=== PATIENT | female | born 1965 | race Caucasian/White ===

== ENCOUNTER 2016-10-31 23:22 | Inpatient (IN) | payer SELFPAY ==
--- NOTE | 2016-11-01 02:39 | PDOC ---
Attending Attestation - HPI HPI: 11/01/16 02:52 50 year old female with a PMHx of NIDDM who presents to the ED with generalized weakness, lightheadedness, polyarthritis, and rash. Patient reports sore throat , cough, and subjective fever for three weeks. She reports onset of weakness, lightheadedness, and left ankle and bilateral wrist pain for 4 days. She notes that the ankle pain lasted for about one day and radiated to the knees on both sides (left worse than right). She has difficulty walking, noting that she just doesn't have the strength. She has only taken NyQuil and DayQuil for symptoms. She denies alcohol, tobacco, or drug use. - Physicial Exam PE: 11/01/16 02:52 GENERAL: Well-appearing, well-nourished. No apparent distress. HEENT: Normocephalic, atraumatic. PERRL, EOM intact. Lesions in posterior pharynx. CARDIOVASCULAR: Regular rate and rhythm. 2-3 out of 6 systolic murmur. PULMONARY: Clear to auscultation bilaterally. ABDOMEN: Soft, non-distended, non-tender. EXTREMITIES: Normal ROM in all four extremities. No gross deformities. SKIN: Warm, dry. Maculopapular rash on trunk and extremities. NEUROLOGICAL: No focal neurological deficits. <Vanessa Savage - Last Filed: 11/01/16 03:16> - Resident Resident Name: Ibrahim,Mary - ED Attending Attestation I have performed the following: I have examined & evaluated the patient, The case was reviewed & discussed with the resident, I agree w/resident's findings & plan, Exceptions are as noted - HPI HPI: 11/01/16 19:41 patient complains sore throat generalized and rash for the last several weeks. patient states that just started two days ago. Pt states she also has soreness and swelling to her joints - Physicial Exam PE: 11/01/16 19:40 *Physical Exam General Appearance: Yes: Appropriately Dressed. No: Apparent Distress, Intoxicated HEENT: positive: EOMI, STEPHANIE, Normal ENT Inspection, Normal Voice, TMs Normal, Pharynx Normal. negative: Pale Conjunctivae, Photophobia, Scleral Icterus (R), Scleral Icterus (L) Neck: positive: Trachea midline, Normal Thyroid, Supple. negative: Tender, Rigid, Carotid bruit, Stridor, Lymphadenopathy (R), Lymphadenopathy (L), Thyromegaly Respiratory/Chest: positive: Lungs Clear, Normal Breath Sounds. negative: Chest Tender, Respiratory Distress, Accessory Muscle Use, Labored Respiration, RES, Crackles, Rales, Rhonchi, Stridor, Wheezing, Dullness Cardiovascular: positive: Regular Rhythm, Regular Rate, S1, S2. negative: Edema , JVD, Murmur, Bradycardia, Tachycardia Vascular Pulses: Dorsalis-Pedis (R): 2+, Doralis-Pedis (L): 2+ Gastrointestinal/Abdominal: positive: Normal Bowel Sounds, Flat, Soft. negative : Tender, Organomegaly, Pulsatile Mass, Increased Bowel Sounds, Decreased BS, Distended, Guarding, Rebound, Hernia, Hepatomegaly, Spleenomegaly Lymphatic: negative: Adenopathy, Tenderness Musculoskeletal: positive: Normal Inspection. edema to the hands and feet. negative: CVA Tenderness, Decreased Range of Motion Extremity: positive: Normal Capillary Refill, Normal Inspection, Normal Range of Motion, Pelvis Stable. negative: Tender, Pedal Edema, Swelling, Erythema Integumentary: positive: Normal Color, Dry, Warm. macular papular rash to trunk and extremities, negative: Cyanotic, Erythema, Jaundice Neurologic: positive: acupuncture physician II-XII NML intact, Fully Oriented, Alert, Normal Mood/ Affect, Motor Strength 5/5. negative: EOM Palsy, Facial Droop, Sensory Deficit - Medical Decision Making 11/01/16 19:43 Pt admitted to further evaluation <Zachary Campos - Last Filed: 11/01/16 19:43> Discharge Disposition <Vanessa Savage - Last Filed: 11/01/16 03:16> - Discharge Dispostion Last Admission D/C Date: 03/24/10 Admit: Yes <Zachary Campos - Last Filed: 11/01/16 19:43> - Diagnosis Post-streptococcal glomerulonephritis - Discharge Dispostion Condition at time of disposition: Guarded
[2016-11-01] MEDS ORDERED: SODIUM CHLORIDE 1,000 ML IV STA (02:48)
--- NOTE | 2016-11-01 02:57 | PDOC ---
History of Present Illness - General Chief Complaint: Pain, Acute Stated Complaint: DIFFICULTY WALKING, NUMBNESS Time Seen by Provider: 11/01/16 02:10 History Source: Patient Exam Limitations: No Limitations - History of Present Illness Initial Comments: This is a 50 yo female with h/o NIDDM (on Metformin) who presents c/o generalized weakness, lightheadedness, polyarthritis, and rash. Her illness actually started three weeks ago with sore throat, cough, and subjective fever which have persisted since the onset, but this Saturday she additionally had the onset of weakness, lightheadedness, and left ankle and bilateral wrist pain. She notes that the ankle pain lasted for about one day but then seemed to migrate to the knees on both sides (left worse than right). The joints are swollen (especially the wrists) and she fees unable to even grasp a cup of water to drink. She has difficulty walking, noting that she just doesn't have the strength. Past History - Past Medical History Allergies/Adverse Reactions: Allergies Allergy/AdvReac Type Severity Reaction Status Date / Time No Known Allergies Allergy Verified 11/01/16 02:49 Home Medications: Ambulatory Orders Metformin HCl 500 mg PO BID 11/01/16 Diabetes: Yes - Psycho/Social/Smoking Cessation Hx Suicidal Ideation: No Smoking History: Never smoked Have you smoked in the past 12 months: No Information on smoking cessation initiated: No Hx Alcohol Use: No Drug/Substance Use Hx: No Review of Systems - Review of Systems Able to Perform ROS?: Yes Is the patient limited Persian proficient: Yes Constitutional: Yes: Chills, Fever. No: Unexplained wgt Loss HEENTM: Yes: Throat Pain. No: Nose Congestion Respiratory: Yes: Cough, Shortness of Breath Cardiac (ROS): Yes: Chest Pain (mild left sided). No: Palpitations ABD/GI: Yes: Diarrhea (mild). No: Constipated, Nausea, Vomiting : No: Burning, Dysuria Musculoskeletal: No: Back Pain, Neck Pain Integumentary: Yes: Rash (mildly itchy on trunk and extremities). No: Bruising Neurological: Yes: Headache, Weakness (generalized), Dizziness (lightheadedness) . No: Numbness, Tingling Endocrine: No: Unexplained Weight Gain, Unexplained Weight Loss *Physical Exam - Vital Signs Last Vital Signs Temp Pulse Resp BP Pulse Ox 98.7 F 85 17 112/68 100 11/01/16 02:07 11/01/16 02:07 11/01/16 02:07 11/01/16 02:07 11/01/16 02:07 - Physical Exam General Appearance: Yes: Nourished, Appropriately Dressed, Mild Distress, Other (appropriate and conversive, pleasant, but appears a bit tired). No: Apparent Distress HEENT: positive: EOMI, Normal Voice, Hearing Grossly Normal, Other (posterior pharyngeal erythema with soft palate vesicular lesions). negative: Scleral Icterus (R), Scleral Icterus (L), Tonsillar Exudate, Nasal Congestion, Excessive drooling Neck: positive: Trachea midline, Supple. negative: Tender, Rigid Respiratory/Chest: positive: Lungs Clear, Normal Breath Sounds. negative: Respiratory Distress, Crackles, Rhonchi, Stridor, Wheezing Cardiovascular: positive: Regular Rhythm, Regular Rate. negative: Murmur Gastrointestinal/Abdominal: positive: Normal Bowel Sounds, Soft. negative: Tender, Organomegaly, Pulsatile Mass, Guarding Musculoskeletal: positive: Normal Inspection. negative: Decreased Range of Motion, Vertebral Tenderness Extremity: positive: Normal Capillary Refill, Normal Inspection, Normal Range of Motion. negative: Tender, Cyanosis Integumentary: positive: Normal Color, Dry, Warm. negative: Erythema, Rash, Bruising Neurologic: positive: [employer] one dealer II-XII NML intact, Fully Oriented, Alert, Normal Mood/ Affect, Normal Response, Motor Strength 5/5 ED Treatment Course - LABORATORY CBC & Chemistry Diagram: 11/01/16 03:00 11/01/16 03:00 Medical Decision Making - Medical Decision Making 50 yo female with NIDDM who p/w sore throat/fever x3 weeks, now with polyarthritis, gen. weakness, dizziness, rash. States moved from [place] years ago but was fully immunized. Exam notable for hand/finger edema, polyarticular painful ROM, truncal/ extremity maculopapular rash, 2/6 systolic murmur. DDX includes post-streptococcal glomerulonephritis, rheumatic fever, nephrotic syndrome, medication reaction. Ordered are CBC, CMP, UA with cx, ESR, CXR, EKG. ESR is 44, UA with 2+ protein, 2+ blood, 2+ leukocyte esterase with few squamous cells. EKG NSR without ID prolongation or low voltage. Empirically treating for UTI with 1g ceftriaxone IVPB. Does not meet Dolan criteria for rheumatic fever based on workup so far. Most likely this is post-Streptococcal glomerulonephritis. Pt is admitted for further workup and IV antibiotics. *DC/Admit/Observation/Transfer Diagnosis at time of Disposition: Post-streptococcal glomerulonephritis - Discharge Dispostion Condition at time of disposition: Guarded Admit: Yes - Attestations Physician Attestion: 11/01/16 07:23 I, Dr. Donna Ibrahim, attest that this document has been prepared under my direction and personally reviewed by me in its entirety. I further attest, that it accurately reflects all work, treatment, procedures and medical decision -making performed by me.
[2016-11-01 03:08] LABS: BASOPHIL 0.5 % (0-2.0); EOSINOPHIL 1.4 % (0-4.5); MCH 30.8 pg (25.7-33.7); MCHC 34.7 g/dl (32.0-36.0); MEAN CELL VOLUME 88.7 fl (80-96); MEAN PLT VOLUME 8.3 fl (7.5-11.1); NEUTROPHILS 68.2 % (42.8-82.8); PLATELET COUNT 247 K/MM3 (134-434); RDW 12.3 % (11.6-15.6); WHITE BLOOD COUNT 7.1 K/mm3 (4.0-10.0)
[2016-11-01 03:20] LABS: INR 1.04 (0.82-1.09); PROTHROMBIN TIME (PATIENT) 11.5 SEC (9.98-11.88)
[2016-11-01 03:32] LABS: ALK PHOS 118 U/L (45-117); ANION GAP 9 (8-16); BILIRUBIN,TOTAL 0.4 mg/dL (0.2-1.0); CALCIUM 8.6 mg/dL (8.5-10.1); CO2 27 mmol/L (21-32); CREATININE 0.6 mg/dL (0.55-1.02); GLUCOSE,RANDOM 171 mg/dL (74-106); SGOT/AST 22 U/L (15-37); SGPT/ALT 41 U/L (12-78); TOT PROT 7.4 g/dl (6.4-8.2)
[2016-11-01 03:33] LABS: TROPONIN I < 0.02 ng/ml (0.00-0.05)
[2016-11-01 03:35] LABS: URINE APPEARANCE CLEAR; URINE BILIRUBIN NEGATIVE (NEGATIVE); URINE BLOOD 2+ (NEGATIVE); URINE COLOR YELLOW; URINE GLUCOSE (UA) NEGATIVE (NEGATIVE); URINE KETONE 2+ (NEGATIVE); URINE NITRITE NEGATIVE (NEGATIVE); URINE UROBILINOGEN NEGATIVE mg/dL (0.2-1.0)
[2016-11-01 03:47] LABS: URINE LEUK ESTERASE 2+ (NEGATIVE); URINE PROTEIN 2+ (NEGATIVE)
[2016-11-01 04:04] LABS: URINE MUCUS RARE; URINE RBC 4 /hpf (0-3); URINE WBC 25 /hpf (3-5)
[2016-11-01 04:08] LABS: ERYTHROCYTE SEDIMENTATION RATE 44 mm/hr (0-30)
[2016-11-01] MEDS ORDERED: CEFTRIAXONE 1 GM in DEXTROSE 5%-WATER - 50 ML IVPB ONE (05:30)
[2016-11-01] MEDS ORDERED: CEFTRIAXONE 50 ML ONE (05:55)
[2016-11-01] MEDS ORDERED: ACETAMINOPHEN 325 MG TABLET (FP) PO PRN (06:14)
[2016-11-01] MEDS ORDERED: predniSONE 20 MG TABLET (UD) PO ONE (06:15)
--- NOTE | 2016-11-01 06:16 | HP ---
CHIEF COMPLAINT: joint pain HISTORY OF PRESENT ILLNESS: 50yo woman with PMH of NIDDM who presents with several days of generalized weakness and polyarthritis. 3 weeks ago she had a sore throat, cough and subjective fever. She reports that her son was also sick around that time, and was found to be positive for Strep throat. Patient states that she was feeling better, but several days ago started to have pain and swelling both knees. The following day her wrists were painful as well, and she started to have difficulty walking 2/2 to pain. She notes that she has had rash on her upper extremities that improved prior to arriving to the ED. Pt denies CP, pressure, or palpitations. No nausea, vomiting, diarrhea, or constipation. No dysuria or urinary frequency. Recent Travel: Denies PAST MEDICAL HISTORY: #NIDDM - controlled with diet and metformin #Heart murmur as child --> Around 10yo while in [facility] recalls 6mo of oral medication after discovery of heart murmur PAST SURGICAL HISTORY: unknown Social History: from [place] Smoking: never Alcohol: no Drugs: no Family History: non-contributory Allergies: NKDA HOME MEDICATIONS: Home Medications Medication Instructions Recorded Metformin HCl 500 mg PO BID 11/01/16 REVIEW OF SYSTEMS CONSTITUTIONAL: +generalized weakness Absent: fever, chills, diaphoresis, generalized weakness, malaise, loss of appetite, weight change HEENT: Absent: rhinorrhea, nasal congestion, throat pain, throat swelling, difficulty swallowing, mouth swelling, ear pain, eye pain, visual changes CARDIOVASCULAR: Absent: chest pain, syncope, palpitations, irregular heart rate, lightheadedness , peripheral edema RESPIRATORY: Absent: cough, shortness of breath, dyspnea with exertion, orthopnea, wheezing, stridor, hemoptysis GASTROINTESTINAL: Absent: abdominal pain, abdominal distension, nausea, vomiting, diarrhea, constipation, melena, hematochezia GENITOURINARY: Absent: dysuria, frequency, urgency, hesitancy, hematuria, flank pain, genital pain MUSCULOSKELETAL: +polyarthralgia, joint swelling Absent: myalgia back pain, neck pain SKIN:+rash on arms and trunk Absent: rash, itching, pallor HEMATOLOGIC/IMMUNOLOGIC: Absent: easy bleeding, easy bruising, lymphadenopathy, frequent infections ENDOCRINE: Absent: unexplained weight gain, unexplained weight loss, heat intolerance, cold intolerance NEUROLOGIC: Absent: headache, focal weakness or paresthesias, dizziness, unsteady gait, seizure, mental status changes, bladder or bowel incontinence PSYCHIATRIC: Absent: anxiety, depression, suicidal or homicidal ideation, hallucinations. PHYSICAL EXAMINATION Vital Signs - 24 hr 11/01/16 02:07 Temperature 98.7 F Pulse Rate 85 Respiratory 17 Rate Blood Pressure 112/68 O2 Sat by Pulse 100 Oximetry (%) GENERAL: Awake, alert, and fully oriented, in no acute distress. HEAD: Normal with no signs of trauma. EYES: PERRLA, EOMI, sclera anicteric, conjunctiva clear EARS, NOSE, THROAT: Oropharynx clear without exudates. Moist mucous membranes. NECK: supple, no cervical LAD LUNGS: CTAB, no wheezes, crackles, or rhonchi HEART: Regular rate and rhythm, normal S1 and S2, 2/6 systolic murmur ABDOMEN: Soft, NTND, normoactive bowel sounds, no guarding, no rebound, no masses. No hepatomegaly or splenomegaly. MUSCULOSKELETAL: painful ROM in knees and wrists bilaterally UPPER EXTREMITIES: moderately edematous wrists and forearms LOWER EXTREMITIES: 2+ pulses, warm, well-perfused. No LE edema. NEUROLOGICAL: Grossly intact, not formally tested. Normal speech. Gait not assessed. PSYCHIATRIC: Cooperative. Good eye contact. Appropriate mood and affect. SKIN: Warm, dry, normal turgor. Macular rash on extremities, sparing palms and soles. Laboratory Results - last 24 hr 11/01/16 11/01/16 11/01/16 03:00 03:00 03:00 WBC 7.1 RBC 3.96 Hgb 12.2 Hct 35.2 MCV 88.7 MCH 30.8 MCHC 34.7 RDW 12.3 Plt Count 247 MPV 8.3 Neutrophils % 68.2 Lymphocytes % 22.7 Monocytes % 7.2 Eosinophils % 1.4 Basophils % 0.5 ESR 44 H INR 1.04 Sodium 139 Potassium 3.7 Chloride 103 Carbon Dioxide 27 Anion Gap 9 BUN 15 Creatinine 0.6 Creat Clearance w eGFR > 60 Random Glucose 171 H Calcium 8.6 Total Bilirubin 0.4 AST 22 ALT 41 Alkaline Phosphatase 118 H Creatine Kinase Troponin I Total Protein 7.4 Albumin 4.0 Urine Color Urine Appearance Urine pH Urine Protein Urine Glucose (UA) Urine Ketones Urine Blood Urine Nitrite Urine Bilirubin Urine Urobilinogen Ur Leukocyte Esterase Urine RBC Urine WBC Ur Epithelial Cells Urine Mucus Troponin, BNP 11/01/16 03:00 Troponin I < 0.02 Urine Test Results Urine Color Yellow 11/01/16 03:01 Urine Appearance Clear 11/01/16 03:01 Urine pH 5.0 (5.0-8.0) 11/01/16 03:01 Urine Protein 2+ (NEGATIVE) H 11/01/16 03:01 Urine Glucose (UA) Negative (NEGATIVE) 11/01/16 03:01 Urine Ketones 2+ (NEGATIVE) H 11/01/16 03:01 Urine Blood 2+ (NEGATIVE) H 11/01/16 03:01 Urine Nitrite Negative (NEGATIVE) 11/01/16 03:01 Urine Bilirubin Negative (NEGATIVE) 11/01/16 03:01 Ur Leukocyte Esterase 2+ (NEGATIVE) H 11/01/16 03:01 Urine RBC 4 /hpf (0-3) 11/01/16 03:01 Urine WBC 25 /hpf (3-5) 11/01/16 03:01 Ur Epithelial Cells Few /hpf (FEW) 11/01/16 03:01 Urine Mucus Rare 11/01/16 03:01 ASSESSMENT/PLAN: 50yo old woman with PMH of NIDDM who presents with polyarthritis and macular rash on UE sparing palms s/p URI 3weeks ago, and admitted for rheumatic fever vs post-infectious arthritis rule-out. #polyarthritis -Rheumatology consulted -Started on prednisone 60mg PO daily -LON pending #NIDDM -Hold home Metformin -Pending Hgb A1c -BGM HS -ISS HS #F/E/N -NS 1L bolus -Electrolytes wnl -Diabetic diet #Prophylaxis -DVT ppx: low risk - encourage early ambulation -GI ppx not indicated #Dispo -Admit for observation -FULL code d/w with Dr. Hoff and medical team LEONEL MALIN MD PGY-1 Visit type - Emergency Visit Emergency Visit: Yes ED Registration Date: 11/01/16 Care time: The patient presented to the Emergency Department on the above date and was hospitalized for further evaluation of their emergent condition. - New Patient This patient is new to me today: Yes Date on this admission: 11/01/16 - Critical Care Critical Care patient: No
[2016-11-01] MEDS ORDERED: SODIUM CHLORIDE 1,000 ML IV SCH (06:30)
--- NOTE | 2016-11-01 07:38 | PN ---
Teaching Attending Note Name of Resident: Yi Sharma ATTENDING PHYSICIAN STATEMENT I saw and evaluated the patient. I reviewed the resident's note and discussed the case with the resident. I agree with the resident's findings and plan as documented. SUBJECTIVE: 50 y/o F c/o b/l joint swelling and pain after URI ( sore throat) 3 weeks prior. Patient also noted to have macular rash on extremities, sparing palm and sole. OBJECTIVE: Wrist and knee joints painful on movement, slightly swollen. Laboratory Results - last 24 hr 11/01/16 11/01/16 11/01/16 03:00 03:00 03:00 WBC 7.1 RBC 3.96 Hgb 12.2 Hct 35.2 MCV 88.7 MCH 30.8 MCHC 34.7 RDW 12.3 Plt Count 247 MPV 8.3 Neutrophils % 68.2 Lymphocytes % 22.7 Monocytes % 7.2 Eosinophils % 1.4 Basophils % 0.5 ESR 44 H INR 1.04 Sodium 139 Potassium 3.7 Chloride 103 Carbon Dioxide 27 Anion Gap 9 BUN 15 Creatinine 0.6 Creat Clearance w eGFR > 60 Random Glucose 171 H Lactic Acid Calcium 8.6 Total Bilirubin 0.4 AST 22 ALT 41 Alkaline Phosphatase 118 H Creatine Kinase Troponin I Total Protein 7.4 Albumin 4.0 Urine Color Urine Appearance Urine pH Urine Protein Urine Glucose (UA) Urine Ketones Urine Blood Urine Nitrite Urine Bilirubin Urine Urobilinogen Ur Leukocyte Esterase Urine RBC Urine WBC Ur Epithelial Cells Urine Mucus 11/01/16 11/01/16 11/01/16 03:00 03:01 05:21 WBC RBC Hgb Hct MCV MCH MCHC RDW Plt Count MPV Neutrophils % Lymphocytes % Monocytes % Eosinophils % Basophils % ESR INR Sodium Potassium Chloride Carbon Dioxide Anion Gap BUN Creatinine Creat Clearance w eGFR Random Glucose Lactic Acid 0.9 Calcium Total Bilirubin AST ALT Alkaline Phosphatase Creatine Kinase 58 Troponin I < 0.02 Total Protein Albumin Urine Color Yellow Urine Appearance Clear Urine pH 5.0 Urine Protein 2+ H Urine Glucose (UA) Negative Urine Ketones 2+ H Urine Blood 2+ H Urine Nitrite Negative Urine Bilirubin Negative Urine Urobilinogen Negative Ur Leukocyte Esterase 2+ H Urine RBC 4 Urine WBC 25 Ur Epithelial Cells Few Urine Mucus Rare ASSESSMENT AND PLAN: Strep test was negative however suspicious for s/p strep arthritis vs viral syndrome. Follow LON, IVF, tylenol prn and rheumatology consult. Prediabetic get HbgA1c.
[2016-11-01] MEDS ORDERED: metFORMIN HCL 500 MG TABLET (FP) PO SCH (10:00)
--- NOTE | 2016-11-01 11:52 | EKG ---
Test Reason : Blood Pressure : / mmHG Vent. Rate : 078 BPM Atrial Rate : 078 BPM P-R Int : 166 ms QRS Dur : 098 ms QT Int : 386 ms P-R-T Axes : 038 031 046 degrees QTc Int : 440 ms NORMAL SINUS RHYTHM NORMAL ECG NO PREVIOUS ECGS AVAILABLE Confirmed by MARVIN SANCHEZ MD ([id number]) on 11/01/2016 11:52:07 AM Referred By: Confirmed By:MARVIN SANCHEZ MD
--- NOTE | 2016-11-01 16:58 | CONSULT ---
Consult Consult Specialty:: infectious diseases Reason for Consultation:: sore throat - History of Present Illness Chief Complaint: weakness,christelle throat History of Present Illness: 50yo woman with PMH of NIDDM who came to the hospital because according to her she was not getting well several days of generalized weakness and polyarthritis. 3 weeks ago she had a sore throat, cough and subjective fever. She reports that her son was also sick around that time, and was found to be positive for Strep throat. patient states that she was doing well untill she noticed swelling and pain in the knee joint according to her both she also mentions that she had a rash on the upper ext which has resolved and also had pain in both wrists According to her the pain was simultaneous in the joints of both legs and then when it occurred it was in both wrists NO other symptoms denies chest pain or any other issues currently in the er patient has no issues and feels good there was a thought process that the patient might have had rheumatic type of picture - History Source History Provided By: Patient, Medical Record Limitations to Obtaining History: Language Barrier - Alcohol/Substance Use Hx Alcohol Use: No - Smoking History Smoking history: Never smoked Have you smoked in the past 12 months: No Home Medications - Allergies Allergies/Adverse Reactions: Allergies Allergy/AdvReac Type Severity Reaction Status Date / Time No Known Allergies Allergy Verified 11/01/16 02:49 - Home Medications Home Medications: Ambulatory Orders Metformin HCl 500 mg PO BID 11/01/16 Review of Systems - Review of Systems Constitutional: reports: Fever, Weakness, Other Eyes: reports: No Symptoms HENT: reports: Other (sore throat) Neck: reports: No Symptoms Cardiovascular: reports: No Symptoms Respiratory: reports: No Symptoms Gastrointestinal: reports: No Symptoms Genitourinary: reports: No Symptoms Musculoskeletal: reports: Joint Swelling, Other (joint pain) Integumentary: reports: Erythema Neurological: reports: No Symptoms Endocrine: reports: No Symptoms Hematology/Lymphatic: reports: No Symptoms Psychiatric: reports: No Symptoms Physical Exam Vital Signs: Vital Signs Temperature 98.2 F 11/01/16 06:43 Pulse Rate 82 11/01/16 06:43 Respiratory Rate 11/01/16 06:43 Blood Pressure 116/68 11/01/16 06:43 O2 Sat by Pulse Oximetry (%) 97 11/01/16 06:43 Constitutional: Yes: Well Nourished, No Distress, Calm Eyes: Yes: Conjunctiva Clear HENT: Yes: Atraumatic Neck: Yes: Supple, Trachea Midline Cardiovascular: Yes: Regular Rate and Rhythm Respiratory: Yes: Regular, CTA Bilaterally Gastrointestinal: Yes: Normal Bowel Sounds, Soft Musculoskeletal: Yes: WNL Extremities: Yes: WNL Integumentary: No: Rash Neurological: Yes: Alert, Oriented Psychiatric: Yes: Alert, Oriented Imaging - Results Chest X-ray: Report Reviewed, Image Reviewed Other: Report Reviewed (echo), Image Reviewed (echo) Assessment/Plan patient evaluated patient admited with a possibility of rheumatic fever at the moment patient has no symptoms and patient is doing well patient has got her throat culture done and her blood work ahs been send as well as immunological work up poss rheumatic fever dm plan i will start on unasyn will await for all cx report miles await for immunology report rest as per primary team
--- NOTE | 2016-11-01 17:40 | HOSP ---
Subjective - Review of Symptoms Subjective: Evaluated pt at bedside states pain in knees B/L improved but continues to have pain in her hands. states rash has disappeared since arriving in the ER, that it was on both arms and legs, described it as erythematous but not painful or pruritic. states her symptoms started about 3 weeks ago with productive cough of yellow sputum along with subjective fever, chills and sore throat. her 6yo son was symptomatic as well and took him to ER and was told he had strep throat and given abx and symptoms resolved. denies CP, palpitations, N/V/C?D, no chorea, no dysuria or urinary frequency Last Vital Signs Temp Pulse Resp BP Pulse Ox 98.2 F 82 17 116/68 97 11/01/16 06:43 11/01/16 06:43 11/01/16 06:43 11/01/16 06:43 11/01/16 06:43 General NAD HEENT no erythema on pharynx or exudate CV S1 S2 RRR no murmur/rub/gallop +chest wall tenderness Lungs CTA B/L no wheezing/rales/rhonchi Extremities joint tenderness over metacarpals B/L no tenderness of knees or ankles. no nodules skin no rashes or erythema Assessment & Plan 1. Arthritis- concern for Rheumatic fever. son was +strep per pt. unclear if rash was characteristic of erythema marginatum. also has +arthralgia and elevated ESR. normal MI interval. clinical improvement with steroids given. started on Unasyn by ID. echo pending to evaluate for cardiac involvement. will start naproxen 500mg BID. robitussin prn cough. rheum, cardio and ID consulted. informed her other family members should be tested for strep and treated if + regardless if symptomatic. daniel/RF pending. f/u Cx 2. DM- A1c 9.2. not controlled on oral agents. will cont insulin at this time. iss. levermir 3. Proteinuria- possible dehydration related. no renal injury. on IVF. will repeat Physical Examination Vital Signs: Vital Signs Temperature 98.2 F 11/01/16 06:43 Pulse Rate 82 11/01/16 06:43 Respiratory Rate 17 11/01/16 06:43 Blood Pressure 116/68 11/01/16 06:43 O2 Sat by Pulse Oximetry (%) 97 11/01/16 06:43
[2016-11-01 18:19] VITALS: BMI 30.9
[2016-11-01] MEDS: AMPICILLIN NA/SULBACTAM NA 3 GM in SODIUM CHLORIDE 100 ML IVPB SCH (18:27)
[2016-11-01] MEDS ORDERED: INSULIN SLIDING SCALE (NOVOLOG) 1 VIAL SQ SCH (22:00)
[2016-11-01] MEDS: NAPROXEN 500 MG TABLET (FP) PO SCH (22:13)
[2016-11-01] MEDS: INSULIN SLIDING SCALE (NOVOLOG) 1 VIAL SQ SCH (22:17)
[2016-11-01 22:50] LABS: HIV 1 & 2 AB NEGATIVE; HIV 1 AGp24 NEGATIVE
[2016-11-02] MEDS ORDERED: PT OWN MED DRAWER 7, Y5N ONE ×3 (01:31→22:08)
[2016-11-02] MEDS: AMPICILLIN NA/SULBACTAM NA 3 GM in SODIUM CHLORIDE 100 ML IVPB SCH ×3 (02:17→17:16)
[2016-11-02] MEDS: INSULIN SLIDING SCALE (NOVOLOG) 1 VIAL SQ SCH ×4 (06:28→22:29)
--- NOTE | 2016-11-02 09:33 | PN ---
Physical Exam: SUBJECTIVE: Patient seen and examined. Feeling better, pain and swelling in hands has improved. No other arthralgias. Rash has dissipated. OBJECTIVE: Vital Signs Period Temp Pulse Resp BP Sys/Serna Pulse Ox Last 24 Hr 97.7 F-98.4 F 62-82 18-18 110-120/7-83 96-99 GENERAL: The patient is awake, alert, and fully oriented, in no acute distress. EYES: PERRL, extraocular movements intact, sclera anicteric, conjunctiva clear. No ptosis. ENT: Ears normal, nares patent, oropharynx clear without exudates, moist mucous membranes. NECK: Trachea midline, full range of motion, supple. LUNGS: Breath sounds equal, clear to auscultation bilaterally, no wheezes, no crackles, no accessory muscle use. HEART: Regular rate and rhythm, S1, S2, soft systolic murmur, no rub or gallop. ABDOMEN: Soft, nontender, nondistended, normoactive bowel sounds, no guarding, no rebound, no hepatosplenomegaly, no masses. EXTREMITIES: 2+ pulses, warm, well-perfused. Fingers are edematous but patient is now able to grasp objects normally. NEUROLOGICAL: Cranial nerves II through XII grossly intact. Normal speech, normal gait. PSYCH: Normal mood, normal affect. SKIN: Warm, dry, normal turgor, no rashes or lesions noted Laboratory Results - last 24 hr 11/01/16 11/01/16 11/01/16 06:42 19:30 22:16 POC Glucometer 273 Hemoglobin A1c % 9.2 H HIV 1&2 Antibody Screen Negative HIV P24 Antigen Negative 11/02/16 06:26 POC Glucometer 185 Hemoglobin A1c % HIV 1&2 Antibody Screen HIV P24 Antigen Active Medications Generic Name Dose Route Start Last Admin Trade Name Freq PRN Reason Stop Dose Admin Acetaminophen 650 mg 11/01/16 06:14 Tylenol - PO Q4H PRN PAIN Ampicillin Sodium/Sulbactam 100 mls @ 200 mls/hr 11/01/16 18:00 11/02/16 02:17 Sodium 3 gm/ Sodium Chloride IVPB 200 mls/hr Q8H-IV SUNI Administration Insulin Aspart 1 vial 11/01/16 22:00 11/02/16 06:28 Novolog Vial Sliding Scale - SQ 2 units ACHS SUNI Administration Protocol Naproxen 500 mg 11/01/16 22:00 11/01/16 22:13 Naprosyn - PO 500 mg BID SUNI Administration Laboratory Last Values WBC 7.1 K/mm3 (4.0-10.0) 11/01/16 03:00 RBC 3.96 M/mm3 (3.60-5.2) 11/01/16 03:00 Hgb 12.2 GM/dL (10.7-15.3) 11/01/16 03:00 Hct 35.2 % (32.4-45.2) 11/01/16 03:00 MCV 88.7 fl (80-96) 11/01/16 03:00 MCH 30.8 pg (25.7-33.7) 11/01/16 03:00 MCHC 34.7 g/dl (32.0-36.0) 11/01/16 03:00 RDW 12.3 % (11.6-15.6) 11/01/16 03:00 Plt Count 247 K/MM3 (134-434) 11/01/16 03:00 MPV 8.3 fl (7.5-11.1) 11/01/16 03:00 Neutrophils % 68.2 % (42.8-82.8) 11/01/16 03:00 Lymphocytes % 22.7 % (8-40) 11/01/16 03:00 Monocytes % 7.2 % (3.8-10.2) 11/01/16 03:00 Eosinophils % 1.4 % (0-4.5) 11/01/16 03:00 Basophils % 0.5 % (0-2.0) 11/01/16 03:00 ESR 44 mm/hr (0-30) H 11/01/16 03:00 INR 1.04 (0.82-1.09) 11/01/16 03:00 Sodium 139 mmol/L (136-145) 11/01/16 03:00 Potassium 3.7 mmol/L (3.5-5.1) 11/01/16 03:00 Chloride 103 mmol/L (98-107) 11/01/16 03:00 Carbon Dioxide 27 mmol/L (21-32) 11/01/16 03:00 Anion Gap 9 (8-16) 11/01/16 03:00 BUN 15 mg/dL (7-18) 11/01/16 03:00 Creatinine 0.6 mg/dL (0.55-1.02) 11/01/16 03:00 Creat Clearance w eGFR > 60 (>60) 11/01/16 03:00 POC Glucometer 259 UNITS (()) 11/02/16 11:21 Random Glucose 171 mg/dL (74-106) H 11/01/16 03:00 Hemoglobin A1c % 9.2 % (4.8-6.0) H 11/01/16 06:42 Lactic Acid 0.9 mmol/L (0.4-2.0) 11/01/16 05:21 Calcium 8.6 mg/dL (8.5-10.1) 11/01/16 03:00 Total Bilirubin 0.4 mg/dL (0.2-1.0) 11/01/16 03:00 AST 22 U/L (15-37) 11/01/16 03:00 ALT 41 U/L (12-78) 11/01/16 03:00 Alkaline Phosphatase 118 U/L (45-117) H 11/01/16 03:00 Creatine Kinase 58 IU/L (26-192) 11/01/16 03:00 Troponin I < 0.02 ng/ml (0.00-0.05) 11/01/16 03:00 C-Reactive Protein 2.4 MG/DL (0.00-0.3) H 11/02/16 10:19 Total Protein 7.4 g/dl (6.4-8.2) 11/01/16 03:00 Albumin 4.0 g/dl (3.4-5.0) 11/01/16 03:00 Urine Color Yellow 11/01/16 03:01 Urine Appearance Clear 11/01/16 03:01 Urine pH 5.0 (5.0-8.0) 11/01/16 03:01 Ur Specific [place] 1.025 (1.005-1.025) 11/01/16 03:01 Urine Protein 2+ (NEGATIVE) H 11/01/16 03:01 Urine Glucose (UA) Negative (NEGATIVE) 11/01/16 03:01 Urine Ketones 2+ (NEGATIVE) H 11/01/16 03:01 Urine Blood 2+ (NEGATIVE) H 11/01/16 03:01 Urine Nitrite Negative (NEGATIVE) 11/01/16 03:01 Urine Bilirubin Negative (NEGATIVE) 11/01/16 03:01 Urine Urobilinogen Negative mg/dL (0.2-1.0) 11/01/16 03:01 Ur Leukocyte Esterase 2+ (NEGATIVE) H 11/01/16 03:01 Urine RBC 4 /hpf (0-3) 11/01/16 03:01 Urine WBC 25 /hpf (3-5) 11/01/16 03:01 Ur Epithelial Cells Few /hpf (FEW) 11/01/16 03:01 Urine Mucus Rare 11/01/16 03:01 HIV 1&2 Antibody Screen Negative 11/01/16 19:30 HIV P24 Antigen Negative 11/01/16 19:30 ASSESSMENT/PLAN: 50 year old female with rash, arthralgia, and subjective fever following exposure to GAS. 1. Rash/arthralgia/fever -Per Dolan criteria: on major (arthritis) and two minor (fever, elevated acute phase reactants) does meet criteria for rheumatic fever diagnosis -Poststreptococcal reactive arthritis is also a consideration -No echocardiographic evidence of mitral or aortic regurgitation -QTc within normal limits on EKG -Throat culture with pending organism -Continue Naproxen, Unasyn -ID following -Cardiology evaluation pending -Rheumatology is unavailable for consultation 2. NIDDM -Holding Metformin -GhbA1C elevated at 9.2% -Continue Levemir -ISS -FSACHS -Diabetic diet 3. Polyarthritis -Rheumatology consulted -Improving on prednisone 60mg PO daily -LON pending 4. ?UTI -Asymptomatic -On Unasyn -Culture contaminated, will repeat 5. F/E/N -PO intake adequate -Diabetic diet 6. Ppx -Moderate risk -Lovenox -Ambulation DISPO: Requires inpatient services. Consideration of dc pending ID recommendations. Visit type - Emergency Visit Emergency Visit: Yes ED Registration Date: 11/01/16 Care time: The patient presented to the Emergency Department on the above date and was hospitalized for further evaluation of their emergent condition. - New Patient This patient is new to me today: Yes Date on this admission: 11/03/16 - Critical Care Critical Care patient: No - Discharge Referral Referred to [facility] P.C[facility] No
--- NOTE | 2016-11-02 09:59 | CON.CARD ---
Cardiology Consult (text) - Consultation Consultation Note: cc: weakness, joint pains, sore throat hpi: 50 f hx dm, here with weakness, sore throat, joint pain, fever, cough, rash. Been going on for few weeks. No cps, sob, palps, loc, pnd, orthopnea, le edema. Getting abx for strep. Cardio consulted for possible rheumatic fever. Pt feeling much better today after abx. pmh: per hpi psh: nc social: no tob fam: no premature cad/scd ros: per hpi; no nvd, nasal congestion, taylor, vision changes, gib, dysuria, hematuria meds: Home Medications Medication Instructions Recorded Metformin HCl 500 mg PO BID 11/01/16 pe: Vital Signs Period Temp Pulse Resp BP Sys/Serna Pulse Ox Last 24 Hr 97.7 F-98.4 F 62-82 18-18 110-120/7-83 96-99 nad no jvd rrr s1s2 no mrg cta bl nl eff aaox3 no le e/c/c abd nt nd pos bs no jaundice diaphoresis +dp/pt no carotid bruits Laboratory Last Values WBC 7.1 K/mm3 (4.0-10.0) 11/01/16 03:00 RBC 3.96 M/mm3 (3.60-5.2) 11/01/16 03:00 Hgb 12.2 GM/dL (10.7-15.3) 11/01/16 03:00 Hct 35.2 % (32.4-45.2) 11/01/16 03:00 MCV 88.7 fl (80-96) 11/01/16 03:00 MCH 30.8 pg (25.7-33.7) 11/01/16 03:00 MCHC 34.7 g/dl (32.0-36.0) 11/01/16 03:00 RDW 12.3 % (11.6-15.6) 11/01/16 03:00 Plt Count 247 K/MM3 (134-434) 11/01/16 03:00 MPV 8.3 fl (7.5-11.1) 11/01/16 03:00 Neutrophils % 68.2 % (42.8-82.8) 11/01/16 03:00 Lymphocytes % 22.7 % (8-40) 11/01/16 03:00 Monocytes % 7.2 % (3.8-10.2) 11/01/16 03:00 Eosinophils % 1.4 % (0-4.5) 11/01/16 03:00 Basophils % 0.5 % (0-2.0) 11/01/16 03:00 ESR 44 mm/hr (0-30) H 11/01/16 03:00 INR 1.04 (0.82-1.09) 11/01/16 03:00 Sodium 139 mmol/L (136-145) 11/01/16 03:00 Potassium 3.7 mmol/L (3.5-5.1) 11/01/16 03:00 Chloride 103 mmol/L (98-107) 11/01/16 03:00 Carbon Dioxide 27 mmol/L (21-32) 11/01/16 03:00 Anion Gap 9 (8-16) 11/01/16 03:00 BUN 15 mg/dL (7-18) 11/01/16 03:00 Creatinine 0.6 mg/dL (0.55-1.02) 11/01/16 03:00 Creat Clearance w eGFR > 60 (>60) 11/01/16 03:00 POC Glucometer 185 UNITS (()) 11/02/16 06:26 Random Glucose 171 mg/dL (74-106) H 11/01/16 03:00 Hemoglobin A1c % 9.2 % (4.8-6.0) H 11/01/16 06:42 Lactic Acid 0.9 mmol/L (0.4-2.0) 11/01/16 05:21 Calcium 8.6 mg/dL (8.5-10.1) 11/01/16 03:00 Total Bilirubin 0.4 mg/dL (0.2-1.0) 11/01/16 03:00 AST 22 U/L (15-37) 11/01/16 03:00 ALT 41 U/L (12-78) 11/01/16 03:00 Alkaline Phosphatase 118 U/L (45-117) H 11/01/16 03:00 Creatine Kinase 58 IU/L (26-192) 11/01/16 03:00 Troponin I < 0.02 ng/ml (0.00-0.05) 11/01/16 03:00 Total Protein 7.4 g/dl (6.4-8.2) 11/01/16 03:00 Albumin 4.0 g/dl (3.4-5.0) 11/01/16 03:00 Urine Color Yellow 11/01/16 03:01 Urine Appearance Clear 11/01/16 03:01 Urine pH 5.0 (5.0-8.0) 11/01/16 03:01 Ur Specific [place] 1.025 (1.005-1.025) 11/01/16 03:01 Urine Protein 2+ (NEGATIVE) H 11/01/16 03:01 Urine Glucose (UA) Negative (NEGATIVE) 11/01/16 03:01 Urine Ketones 2+ (NEGATIVE) H 11/01/16 03:01 Urine Blood 2+ (NEGATIVE) H 11/01/16 03:01 Urine Nitrite Negative (NEGATIVE) 11/01/16 03:01 Urine Bilirubin Negative (NEGATIVE) 11/01/16 03:01 Urine Urobilinogen Negative mg/dL (0.2-1.0) 11/01/16 03:01 Ur Leukocyte Esterase 2+ (NEGATIVE) H 11/01/16 03:01 Urine RBC 4 /hpf (0-3) 11/01/16 03:01 Urine WBC 25 /hpf (3-5) 11/01/16 03:01 Ur Epithelial Cells Few /hpf (FEW) 11/01/16 03:01 Urine Mucus Rare 11/01/16 03:01 HIV 1&2 Antibody Screen Negative 11/01/16 19:30 HIV P24 Antigen Negative 11/01/16 19:30 ecg 11/01/16: sr, nl intervals, no ischemic changes cxr: clear lungs echo 10/2016: nl lv/rv, no sig valve path, nl rvsp a/p: possible rheumatic fever: -pt feeling better today -no cardiac sxs, no signs chf -echo and ecg unremarkable -no indication of cardiac involvement at this time -cont abx per ID
[2016-11-02] MEDS: NAPROXEN 500 MG TABLET (FP) PO SCH ×2 (10:12→22:29)
[2016-11-02] MEDS: ENOXAPARIN NA (PORCINE) 40 MG/0.4 ML DISP.SYRIN SQ SCH (13:41)
--- NOTE | 2016-11-02 14:54 | PN ---
Progress Note, Physician History of Present Illness: patient feels better no new issues - Current Medication List Current Medications: Active Medications Acetaminophen (Tylenol -) 650 mg PO Q4H PRN PRN Reason: PAIN Enoxaparin Sodium (Lovenox -) 40 mg SQ DAILY [facility] Last Admin: 11/02/16 13:41 Dose: 40 mg Ampicillin Sodium/Sulbactam (Sodium 3 gm/ Sodium Chloride) 100 mls @ 200 mls/ hr IVPB Q8H-IV [facility] Last Admin: 11/02/16 10:12 Dose: 200 mls/hr Insulin Aspart (Novolog Vial Sliding Scale -) 1 vial SQ ACHS SUNI PRN Reason: Protocol Last Admin: 11/02/16 12:04 Dose: 6 units Naproxen (Naprosyn -) 500 mg PO BID [facility] Last Admin: 11/02/16 10:12 Dose: 500 mg - Objective Vital Signs: Vital Signs Temperature 97.8 F 11/02/16 10:00 Pulse Rate 70 11/02/16 10:00 Respiratory Rate 18 11/02/16 10:00 Blood Pressure 104/69 11/02/16 10:00 O2 Sat by Pulse Oximetry (%) 96 11/01/16 21:00 Constitutional: Yes: No Distress, Calm Cardiovascular: Yes: Regular Rate and Rhythm Respiratory: Yes: Regular, CTA Bilaterally Gastrointestinal: Yes: Normal Bowel Sounds, Soft Musculoskeletal: Yes: WNL Extremities: Yes: WNL Neurological: Yes: Alert, Oriented Psychiatric: Yes: Alert, Oriented Labs: INR, PTT INR 1.04 (0.82-1.09) 11/01/16 03:00 Assessment/Plan poss rheumatic fever dm plan continue current mgmt await for reports to be back throat cx--grp strp a is negative \other organism awaited immunology result awaited once we have all the results we [facility] her to oral abx
[2016-11-02] MEDS ORDERED: INSULIN (NOVOLOG) ASPART 100 UNITS/ML 10ML VIAL ONE ×2 (16:41→22:07)
[2016-11-03] MEDS ORDERED: PT OWN MED DRAWER 7, Y5N ONE ×4 (01:32→20:43)
[2016-11-03] MEDS: AMPICILLIN NA/SULBACTAM NA 3 GM in SODIUM CHLORIDE 100 ML IVPB SCH ×2 (02:02→09:47)
[2016-11-03 06:07] LABS: RHEUMATOID ARTHRITITS FACTOR < 10.0 IU/mL (0.0-13.9)
[2016-11-03] MEDS: INSULIN SLIDING SCALE (NOVOLOG) 1 VIAL SQ SCH ×4 (06:09→21:09)
[2016-11-03] MEDS ORDERED: INSULIN (NOVOLOG) ASPART 100 UNITS/ML 10ML VIAL ONE (06:41)
[2016-11-03 07:50] LABS: BASOPHIL 0.5 % (0-2.0); EOSINOPHIL 2.8 % (0-4.5); MEAN CELL VOLUME 88.7 fl (80-96); MEAN PLT VOLUME 8.7 fl (7.5-11.1); PLATELET COUNT 210 K/MM3 (134-434); RDW 12.8 % (11.6-15.6)
[2016-11-03 08:10] LABS: ALBUMIN 3.3 g/dl (3.4-5.0); ANION GAP 9 (8-16); CALCIUM 8.2 mg/dL (8.5-10.1); CO2 26 mmol/L (21-32); GLUCOSE,RANDOM 178 mg/dL (74-106)
[2016-11-03 08:14] LABS: ALK PHOS 100 U/L (45-117); BILIRUBIN,TOTAL 0.3 mg/dL (0.2-1.0); CREATININE 0.4 mg/dL (0.55-1.02); SGOT/AST 25 U/L (15-37); SGPT/ALT 38 U/L (12-78); TOT PROT 6.2 g/dl (6.4-8.2)
[2016-11-03] MEDS: ENOXAPARIN NA (PORCINE) 40 MG/0.4 ML DISP.SYRIN SQ SCH (09:47)
[2016-11-03] MEDS: NAPROXEN 500 MG TABLET (FP) PO SCH ×2 (09:48→21:05)
--- NOTE | 2016-11-03 10:48 | PN ---
Progress Note, Physician History of Present Illness: patient feels better no new issues - Current Medication List Current Medications: Active Medications Acetaminophen (Tylenol -) 650 mg PO Q4H PRN PRN Reason: PAIN Enoxaparin Sodium (Lovenox -) 40 mg SQ DAILY [facility] Last Admin: 11/03/16 09:47 Dose: 40 mg Ampicillin Sodium/Sulbactam (Sodium 3 gm/ Sodium Chloride) 100 mls @ 200 mls/ hr IVPB Q8H-IV [facility] Last Admin: 11/03/16 09:47 Dose: 200 mls/hr Insulin Aspart (Novolog Vial Sliding Scale -) 1 vial SQ ACHS SUNI PRN Reason: Protocol Last Admin: 11/03/16 06:09 Dose: 2 units Naproxen (Naprosyn -) 500 mg PO BID [facility] Last Admin: 11/03/16 09:48 Dose: 500 mg - Objective Vital Signs: Vital Signs Temperature 97.9 F 11/03/16 06:00 Pulse Rate 64 11/03/16 06:00 Respiratory Rate 18 11/03/16 06:00 Blood Pressure 105/59 11/03/16 06:00 O2 Sat by Pulse Oximetry (%) 97 11/02/16 21:00 Constitutional: Yes: No Distress, Calm Cardiovascular: Yes: Regular Rate and Rhythm Respiratory: Yes: Regular, CTA Bilaterally Gastrointestinal: Yes: Normal Bowel Sounds, Soft Musculoskeletal: Yes: WNL Extremities: Yes: WNL Neurological: Yes: Alert, Oriented Psychiatric: Yes: Alert, Oriented Labs: CBC, BMP 11/03/16 06:10 11/03/16 06:10 INR, PTT INR 1.04 (0.82-1.09) 11/01/16 03:00 Assessment/Plan poss rheumatic fever dm plan continue current mgmt await for reports to be back throat cx--grp strp a is negative \other organism awaited if we can the pending throat cx we can send patient home
[2016-11-03] MEDS ORDERED: CLINDAMYCIN 600MG PREMIX IVPB 50 ML IVPB SCH (13:00)
[2016-11-03] MEDS: CLINDAMYCIN 600MG PREMIX IVPB 50 ML IVPB SCH ×2 (14:08→21:03)
[2016-11-03] MEDS: AMOXICILLIN 500 MG CAPSULE (FP) PO SCH ×2 (14:08→21:04)
--- NOTE | 2016-11-03 14:18 | PN ---
Progress Note (short form) - Note Progress Note: Subjective: The patient was seen and examined at the bedside. she reports feeling good today Throat culture with Group F Strept Discussed with Dr. Sun, will add Clindamycin 600mg IVPB q8h for now Current Medications Generic Name Dose Route Start Last Admin Trade Name Freq PRN Reason Stop Dose Admin Acetaminophen 650 mg 11/01/16 06:14 Tylenol - PO Q4H PRN PAIN Amoxicillin 500 mg 11/03/16 14:00 11/03/16 14:08 Amoxicillin - PO 500 mg TID SUNI Administration Enoxaparin Sodium 40 mg 11/02/16 13:15 11/03/16 09:47 Lovenox - SQ 40 mg DAILY SUNI Administration Clindamycin Phosphate 50 mls @ 100 mls/hr 11/03/16 13:06 11/03/16 14:08 Cleocin 600 Mg Premix Ivpb - IVPB 100 mls/hr Q8H SUNI Administration Insulin Aspart 1 vial 11/01/16 22:00 11/03/16 12:30 Novolog Vial Sliding Scale - SQ 6 units ACHS SUNI Administration Protocol Naproxen 500 mg 11/01/16 22:00 11/03/16 09:48 Naprosyn - PO 500 mg BID SUNI Administration Objective: Vital Signs Period Temp Pulse Resp BP Sys/Serna Pulse Ox Last 24 Hr 97.9 F-98.1 F 64-72 18-18 103-124/59-87 97-98 Physical Exam: General: NAD, A&Ox3 Lungs: CTA bilaterally Heart: RRR, S1S2 Abd: Soft, non-tender, non-distended. Normoactive bowel sounds Ext: metacarpal tenderness bilaterally CBCD WBC 4.0 K/mm3 (4.0-10.0) D 11/03/16 06:10 RBC 3.62 M/mm3 (3.60-5.2) 11/03/16 06:10 Hgb 11.2 GM/dL (10.7-15.3) 11/03/16 06:10 Hct 32.1 % (32.4-45.2) L 11/03/16 06:10 MCV 88.7 fl (80-96) 11/03/16 06:10 MCHC 35.0 g/dl (32.0-36.0) 11/03/16 06:10 RDW 12.8 % (11.6-15.6) 11/03/16 06:10 Plt Count 210 K/MM3 (134-434) 11/03/16 06:10 MPV 8.7 fl (7.5-11.1) 11/03/16 06:10 CMP Sodium 143 mmol/L (136-145) 11/03/16 06:10 Potassium 3.9 mmol/L (3.5-5.1) 11/03/16 06:10 Chloride 108 mmol/L (98-107) H 11/03/16 06:10 Carbon Dioxide 26 mmol/L (21-32) 11/03/16 06:10 Anion Gap 9 (8-16) 11/03/16 06:10 BUN 15 mg/dL (7-18) 11/03/16 06:10 Creatinine 0.4 mg/dL (0.55-1.02) L D 11/03/16 06:10 Creat Clearance w eGFR > 60 (>60) 11/03/16 06:10 Random Glucose 178 mg/dL (74-106) H 11/03/16 06:10 Calcium 8.2 mg/dL (8.5-10.1) L 11/03/16 06:10 Total Bilirubin 0.3 mg/dL (0.2-1.0) D 11/03/16 06:10 AST 25 U/L (15-37) 11/03/16 06:10 ALT 38 U/L (12-78) 11/03/16 06:10 Alkaline Phosphatase 100 U/L (45-117) 11/03/16 06:10 Total Protein 6.2 g/dl (6.4-8.2) L 11/03/16 06:10 Albumin 3.3 g/dl (3.4-5.0) L 11/03/16 06:10 CARDIAC ENZYMES Creatine Kinase 58 IU/L (26-192) 11/01/16 03:00 Troponin I < 0.02 ng/ml (0.00-0.05) 11/01/16 03:00 Microbiology 11/01/16 03:00 Throat Throat Culture - Final Beta Hem Streptococcus Group F 11/01/16 03:00 Throat Group A Strep Rapid Antigen - Final 11/01/16 05:21 Blood - Peripheral Venous Blood Culture - Preliminary NO GROWTH OBTAINED AFTER 48 HOURS, INCUBATION TO CONTINUE FOR 3 DAYS. 11/01/16 05:21 Blood - Peripheral Venous Blood Culture - Preliminary NO GROWTH OBTAINED AFTER 48 HOURS, INCUBATION TO CONTINUE FOR 3 DAYS. 11/01/16 05:21 Urine - Urine Clean Catch Urine Culture - Final Contaminated: Please Repeat Assessment: This is a 50 year old female with PMHx of NIDDM who presented to the ED with several days of generalized weakness and polyarthritis after exposure to group a strep. Plan: 1) ID: Group F strep throat culture - Started on Clindamycin 600mg IVPB q8h - Continue Amoxicillin - Will discharge on Clindamycin 300mg po q6h x7 days and Augmentin 875 po bid x7 days - Appreciate ID consult 2) Rheum: rash, arthralgia, fever - meets criteria for rheumatic fever diagnosis - ECHO reviewed - QTc wnl - Continue Naproxen - LON negative - Will need rhematology outpatient follow-up (not available inpatient) 3) Endocrine: DM - HgbA1c 9.2 - ISS ACHS - BGM ACHS - Start Levemir 4) F/E/N: - Monitor electrolytes - Diabetic diet 5) Prophylaxis: - OOB ambulating - Lovenox 40mg sq daily 6) Dispo: - Requires continued inpatient care CODE STATUS: FULL CODE Visit type - Emergency Visit Emergency Visit: Yes ED Registration Date: 11/01/16 Care time: The patient presented to the Emergency Department on the above date and was hospitalized for further evaluation of their emergent condition. - New Patient This patient is new to me today: Yes Date on this admission: 11/03/16 - Critical Care Critical Care patient: No
[2016-11-03 19:02] LABS: URINE APPEARANCE CLEAR; URINE BILIRUBIN NEGATIVE (NEGATIVE); URINE BLOOD 2+ (NEGATIVE); URINE COLOR STRAW; URINE GLUCOSE (UA) 3+ (NEGATIVE); URINE KETONE NEGATIVE (NEGATIVE); URINE LEUK ESTERASE NEGATIVE (NEGATIVE); URINE NITRITE NEGATIVE (NEGATIVE); URINE PROTEIN NEGATIVE (NEGATIVE); URINE UROBILINOGEN NEGATIVE mg/dL (0.2-1.0)
[2016-11-03 19:09] LABS: URINE RBC 1 /hpf (0-3); URINE WBC <1 /hpf (3-5)
[2016-11-03] MEDS ORDERED: INSULIN DETEMIR 100 UNITS/ML MDV SQ SCH (22:00)
[2016-11-04] MEDS: CLINDAMYCIN 600MG PREMIX IVPB 50 ML IVPB SCH ×3 (06:06→14:59)
[2016-11-04] MEDS: AMOXICILLIN 500 MG CAPSULE (FP) PO SCH ×2 (06:06→14:25)
[2016-11-04] MEDS: INSULIN SLIDING SCALE (NOVOLOG) 1 VIAL SQ SCH ×3 (06:32→17:36)
[2016-11-04] MEDS ORDERED: PT OWN MED DRAWER 7, Y5N ONE (09:45)
[2016-11-04] MEDS: ENOXAPARIN NA (PORCINE) 40 MG/0.4 ML DISP.SYRIN SQ SCH (09:57)
[2016-11-04] MEDS: NAPROXEN 500 MG TABLET (FP) PO SCH (09:58)
--- NOTE | 2016-11-04 11:29 | PN ---
Progress Note, Physician History of Present Illness: patient feels better no new issues - Current Medication List Current Medications: Active Medications Acetaminophen (Tylenol -) 650 mg PO Q4H PRN PRN Reason: PAIN Amoxicillin (Amoxicillin -) 500 mg PO TID [facility] Last Admin: 11/04/16 06:06 Dose: 500 mg Enoxaparin Sodium (Lovenox -) 40 mg SQ DAILY [facility] Last Admin: 11/04/16 09:57 Dose: 40 mg Clindamycin Phosphate (Cleocin 600 Mg Premix Ivpb -) 50 mls @ 100 mls/hr IVPB Q8H [facility] Last Admin: 11/04/16 06:06 Dose: 100 mls/hr Insulin Aspart (Novolog Vial Sliding Scale -) 1 vial SQ ACHS [facility] PRN Reason: Protocol Last Admin: 11/04/16 06:32 Dose: 2 units Insulin Detemir (Levemir Vial) 4 units SQ HS [facility] Last Admin: 11/03/16 21:05 Dose: 4 units Naproxen (Naprosyn -) 500 mg PO BID [facility] Last Admin: 11/04/16 09:58 Dose: 500 mg - Objective Vital Signs: Vital Signs Temperature 98.2 F 11/04/16 06:00 Pulse Rate 68 11/04/16 06:00 Respiratory Rate 18 11/04/16 06:00 Blood Pressure 120/71 11/04/16 06:00 O2 Sat by Pulse Oximetry (%) 97 11/03/16 21:00 Constitutional: Yes: No Distress, Calm Cardiovascular: Yes: Regular Rate and Rhythm Respiratory: Yes: Regular, CTA Bilaterally Gastrointestinal: Yes: Normal Bowel Sounds, Soft Musculoskeletal: Yes: WNL Extremities: Yes: WNL Neurological: Yes: Alert, Oriented Psychiatric: Yes: Alert, Oriented Labs: CBC, BMP 11/03/16 06:10 11/03/16 06:10 INR, PTT INR 1.04 (0.82-1.09) 11/01/16 03:00 Assessment/Plan poss rheumatic fever dm strep throat plan cx result noted patient still having some swelling of the wrist treatment with augmentin and clinda for 2 weeks if patient has fever to come back to the hospital follow up with rheum
--- NOTE | 2016-11-04 12:41 | DS ---
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 Please follow-up with providers as indicated. Continue Levemir 6u sq at bedtime. Continue the Novolog sliding scale Follow-up with rheumatology within 2-3 days. Referrals: Phuong Sun MD [Staff Physician] - Wm Em MD [Staff Physician] - 1 Week (Please follow-up with your pcp within 2-3 days ) Brady Dela Cruz MD [Staff Physician] - 1 Week Disposition: VNS/HOME HEALTH CARE - Home Medications Comprehensive Discharge Medication List: Ambulatory Orders Metformin HCl 500 mg PO BID 11/01/16 Alcohol Antiseptic Pads [[employer] Alcohol Prep Pad] 1 each TP TID #90 med..pad 11/04/16 Amoxicillin/Potassium Clav [Augmentin 875-125 Tablet] 1 each PO BID #20 tablet 11/04/16 Clindamycin [Cleocin -] 300 mg PO Q6HPO #40 capsule 11/04/16 Insulin (Levemir) [Levemir Vial] 6 units SQ HS #1 ml 11/04/16 Insulin (Novolog) [Novolog Flexpen -] See Protocol SQ AC #1 pen 11/04/16 Lancets 1 each MC TID #90 each 11/04/16 Miscellaneous Medical Supply [Glucometer Device] 1 each TD ASDIR #1 kit Misc[facility] [employer] [Glucometer Test Strips #100] 1 each TD ASDIR #1 box 11/04/16 - Discharge Referral Referred to [facility] No
[2016-11-04] MEDS ORDERED: CLINDAMYCIN HCL 150 MG CAPSULE (FP) PO ONE (17:42)
[2016-11-04] MEDS ORDERED: INSULIN DETEMIR 100 UNITS/ML MDV SQ ONE (17:43)
[2016-11-04 19:50] VITALS: BP 145/78; PULSE 64; TEMP 98
== END 2016-11-04 19:45 | disposition home health service (06) | DRG 700 ==
LOC: JER 23:22 → JERBED 11-01 05:13 → UNDOADMIN 11-01 05:49 → JERBED 11-01 05:49 → J5S 11-01 17:56
PROVIDERS: ADMIT Internal Medicine; ATTEND Registered Nurse
DX: N00.8 Acute nephritic syndrome with other morphologic changes (principal); I00 Rheumatic fever without heart involvement; E11.9 Type 2 diabetes mellitus without complications; J02.0 Streptococcal pharyngitis; Z79.84 Long term (current) use of oral hypoglycemic drugs; M13.0 Polyarthritis, unspecified; E86.0 Dehydration; R80.9 Proteinuria, unspecified
CPT/HCPCS: 36415; 71010-TC; 80053; 81003; 81015; 82550; 83036; 83605; 84484; 85025; 85610; 85651; 86038; 86140; 86431; 86618; 86664; 87040; 87070; 87086; 87389; 87430; 93005; 93010; 93306-TC; 99284-25